=== PATIENT | male | born 1985 | race Caucasian/White ===

== ENCOUNTER → 2023-02-21 | Emergency (ER) | payer OTHER ==
[~2023-02-21] VITALS: Ht 185.4 cm; Wt 85.7 kg
[2023-02-21 12:17] VITALS: BP 139/93
== END ==
LOC: ER 12:11
DX: S46.222A Laceration of muscle, fascia and tendon of other parts of biceps, left arm, initial encounter (principal); F17.210 Nicotine dependence, cigarettes, uncomplicated; F17.290 Nicotine dependence, other tobacco product, uncomplicated; W26.8XXA Contact with other sharp object(s), not elsewhere classified, initial encounter
CPT/HCPCS: 90714